=== PATIENT | female | born 1945 | race Two or more races ===

== ENCOUNTER 2019-03-06 13:27 | Emergency (ER) | payer OTHER ==
[~2019-03-06] VITALS: Ht 167.6 cm; Wt 61.2 kg
[2019-03-06] MEDS ORDERED: GLUMETZA500 MG PO (14:00)
[2019-03-06] MEDS ORDERED: NEURONTIN300 MG PO (14:00)
== END 2019-03-06 18:16 | disposition home or self-care (01) ==
LOC: ER 13:27
DX: S20.211A Contusion of right front wall of thorax, initial encounter (principal); S00.83XA Contusion of other part of head, initial encounter; M54.2 Cervicalgia; W18.09XA Striking against other object with subsequent fall, initial encounter; Y93.89 Activity, other specified; Y92.59 Other trade areas as the place of occurrence of the external cause; Y99.8 Other external cause status

== ENCOUNTER → 2019-05-21 | Emergency (ER) | payer OTHER ==
[~2019-05-21] VITALS: Ht 160 cm; Wt 74.8 kg
[~2019-05-21] MED LIST: GLUMETZA500 MG PO; NEURONTIN300 MG PO
== END | disposition left against medical advice (07) ==
LOC: ER 11:57
DX: Z53.20 Procedure and treatment not carried out because of patient's decision for unspecified reasons (principal)